=== PATIENT | male | born 1975 | race Native Hawaiian/Other Pacific Islander ===

== ENCOUNTER 2018-03-07 13:20 | Emergency (ER) | payer BC ==
[~2018-03-07] VITALS: Ht 170.2 cm; Wt 90.7 kg
[2018-03-07 14:19] VITALS: BP 145/89; TEMP 99.7
== END 2018-03-07 14:20 | disposition home or self-care (01) ==
LOC: ED 13:20
DX: S40.261A Insect bite (nonvenomous) of right shoulder, initial encounter (principal); L08.9 Local infection of the skin and subcutaneous tissue, unspecified; W57.XXXA Bitten or stung by nonvenomous insect and other nonvenomous arthropods, initial encounter
CPT/HCPCS: 99281

== ENCOUNTER 2018-06-29 14:48 | Emergency (ER) | payer OTHER ==
[~2018-06-29] VITALS: Ht 170.2 cm; Wt 81.6 kg
[2018-06-29 15:22] VITALS: BP 124/78; TEMP 98.1
== END 2018-06-29 15:23 | disposition home or self-care (01) ==
LOC: ED 14:48
DX: J06.9 Acute upper respiratory infection, unspecified (principal); J30.9 Allergic rhinitis, unspecified; Z72.0 Tobacco use
CPT/HCPCS: 96372; 99282; J1020

== ENCOUNTER 2018-08-05 15:17 | Emergency (ER) | payer OTHER ==
[~2018-08-05] VITALS: Ht 170.2 cm; Wt 81.6 kg
[2018-08-05 19:00] VITALS: BP 141/79; TEMP 98.7
== END 2018-08-05 19:00 | disposition home or self-care (01) ==
LOC: ED 15:17
DX: J06.9 Acute upper respiratory infection, unspecified (principal)
CPT/HCPCS: 87651; 96372; 99283; J2930

== ENCOUNTER 2018-12-22 22:57 | Emergency (ER) | payer OTHER ==
[~2018-12-22] VITALS: Ht 170.2 cm; Wt 81.6 kg
[2018-12-23 00:54] VITALS: BP 123/88; TEMP 98.3
== END 2018-12-23 00:55 | disposition home or self-care (01) ==
LOC: ED 22:57
DX: M25.522 Pain in left elbow (principal); M79.662 Pain in left lower leg; S80.12XA Contusion of left lower leg, initial encounter; V86.55XA Driver of 3- or 4- wheeled all-terrain vehicle (ATV) injured in nontraffic accident, initial encounter; Y93.89 Activity, other specified; Y92.89 Other specified places as the place of occurrence of the external cause
CPT/HCPCS: 99283

== ENCOUNTER 2019-03-18 10:35 | Emergency (ER) | payer OTHER ==
[~2019-03-18] VITALS: Ht 170.2 cm; Wt 80.3 kg
[2019-03-18 10:40] VITALS: TEMP 98.1
[2019-03-18 12:30] VITALS: BP 130/77
== END 2019-03-18 12:30 | disposition home or self-care (01) ==
LOC: ED 10:35
DX: J06.9 Acute upper respiratory infection, unspecified (principal); M25.522 Pain in left elbow; F17.210 Nicotine dependence, cigarettes, uncomplicated; X58.XXXA Exposure to other specified factors, initial encounter
CPT/HCPCS: 87502; 87651; 99283

== ENCOUNTER 2019-08-03 09:30 | Emergency (ER) | payer OTHER ==
[~2019-08-03] VITALS: Ht 170.2 cm; Wt 84.8 kg
[2019-08-03 09:44] VITALS: BP 138/70; TEMP 97.5
== END 2019-08-03 10:55 | disposition home or self-care (01) ==
LOC: ED 09:30
PROC: 2W38X1Z Immobilization of Right Upper Extremity using Splint (ICD-10-PCS; principal; 2019-08-03)
DX: M25.521 Pain in right elbow (principal); Y93.H1 Activity, digging, shoveling and raking; Y92.89 Other specified places as the place of occurrence of the external cause
CPT/HCPCS: 99283

== ENCOUNTER 2019-11-27 19:18 | Emergency (ER) | payer OTHER ==
[~2019-11-27] VITALS: Ht 170.2 cm; Wt 84.8 kg
[2019-11-27 19:25] VITALS: BP 149/80; TEMP 98.1
== END 2019-11-27 20:26 | disposition home or self-care (01) ==
LOC: ED 19:18
DX: S00.551A Superficial foreign body of lip, initial encounter (principal); W45.8XXA Other foreign body or object entering through skin, initial encounter; Y92.89 Other specified places as the place of occurrence of the external cause
CPT/HCPCS: 90471; 90715; 99282

== ENCOUNTER 2020-03-28 16:02 | Emergency (ER) | payer OTHER ==
[~2020-03-28] VITALS: Ht 170.2 cm; Wt 84.8 kg
[2020-03-28 17:25] VITALS: BP 141/89; TEMP 98.7
== END 2020-03-28 17:25 | disposition home or self-care (01) ==
LOC: ED 16:02
DX: J20.9 Acute bronchitis, unspecified (principal); F17.210 Nicotine dependence, cigarettes, uncomplicated; Z20.828 Contact with and (suspected) exposure to other viral communicable diseases
CPT/HCPCS: 87635; 99283; U0003

== ENCOUNTER 2020-08-09 16:56 | Emergency (ER) | payer OTHER ==
[~2020-08-09] VITALS: Ht 170.2 cm; Wt 83.9 kg
[2020-08-09 17:09] VITALS: TEMP 97.9
[2020-08-09 18:40] VITALS: BP 124/68
== END 2020-08-09 18:40 | disposition home or self-care (01) ==
LOC: ED 16:56
DX: J01.80 Other acute sinusitis (principal); R51.9 Headache, unspecified; J41.0 Simple chronic bronchitis; F17.210 Nicotine dependence, cigarettes, uncomplicated
CPT/HCPCS: 99282

== ENCOUNTER 2020-10-31 14:16 | Emergency (ER) | payer OTHER ==
[~2020-10-31] VITALS: Ht 170.2 cm; Wt 87.5 kg
[2020-10-31 20:15] VITALS: BP 132/84; TEMP 98.6
== END 2020-10-31 20:15 | disposition home or self-care (01) ==
LOC: ED 14:16
DX: J20.9 Acute bronchitis, unspecified (principal); F17.210 Nicotine dependence, cigarettes, uncomplicated
CPT/HCPCS: 99282

== ENCOUNTER 2022-03-28 12:20 | Emergency (ER) | payer OTHER ==
[~2022-03-28] VITALS: Ht 170.2 cm; Wt 81.6 kg
[2022-03-28 12:23] VITALS: TEMP 98.4
[2022-03-28 13:25] VITALS: BP 138/82
== END 2022-03-28 13:25 | disposition home or self-care (01) ==
LOC: ED 12:20
DX: M25.512 Pain in left shoulder (principal); G89.29 Other chronic pain
CPT/HCPCS: 99283; J1885